=== PATIENT | male | born 1950 | race Caucasian/White ===

== ENCOUNTER → 2017-02-03 | Day surgery (SDC) | payer MEDICARE, OTHER ==
[2017-02-03] VITALS (7 sets, daily range): BP systolic 145–176; BP diastolic 75–97
[~2017-02-03] VITALS: Ht 170.2 cm; Wt 85.3 kg
[~2017-02-03] MED LIST: AMBIEN 10MG TAB10 MG PO; APAP/BUTALBITAL1 TA1 PO; ASPIRIN 81MG TA81 MG PO; BACLOFEN20 MG PO; CIALIS5 MG PO; CIPROFLOXACIN500 MG PO; ELMIRON100 MG PO; FLOMAX 0.4MG C0.4 MG PO; HYDROXYZINE 25M25 MG PO; IBUPROFEN 600M600 MG PO; KAPIDEX60 MG PO; LISINOPRIL 20MG20 MG PO; LISINOPRIL HCTZ1 TAB PO; METOPROLOL SUC100 M1 PO; MOVANTIK25 MG PO; NISOLDIPINE40 MG PO; NORCO 325 MG-51 TAB PO; SIMVASTATIN40 MG PO; SPIRONOLACTONE25 MG NG; TRAZODONE100 MG PO; VALIUM 10MG TAB10 MG PO
--- NOTE | 2017-02-03 12:47 | Procedure Note ---
Procedure detail Date of procedure: 02/03/17 Anesthesiologist: Cirilo Moy M.D. Complications: None Pre-procedure diagnosis: Degenerative disc disease of lumbar spine with lumbar radiculopathy symptoms. Post-procedure diagnosis: Same Indications for procedure: This patient is a pleasant 66-year-old white male who has an intrathecal Dilaudid pain pump in place. He has increasing side effects so he turned his pump off. We're switching him over to intrathecal ziconotide to see if we can get him adequate pain relief. We will access the side-port to pull any drug out of the catheter and also pull intrathecal Dilaudid out of the pump. Procedure detail: Pain pump refill Informed consent was obtained and the risk and benefits of the procedure was explained to the patient. Patient was taken to the procedure room placed prone on the procedure table. He was prepped and draped in sterile fashion. We accessed the side port and we were able to withdraw CSF and drug from the catheter. We will through approximately 2 mL's of fluid and discarded. I then accessed the refill port with a 22-gauge needle and withdrew approximate a Tinel 's of the intrathecal Dilaudid solution and discarded. Pump was then refilled with 20 mls of intrathecal to contact 25 g per mL. Pump was interrogated and started at 1.2 g per day. Patient tolerated the procedure well with no complication. Plan and disposition: We will follow-up with this patient in [place] next week. We will increase his intrathecal seek outside infusion to 1.7 g per day at that time. If he has any problems or side effects he is to call us in the pain clinic. at [id number]
== END ==
LOC: PM 11:58
DX: M51.16 Intervertebral disc disorders with radiculopathy, lumbar region (principal)